=== PATIENT | female | born 1945 | race Caucasian/White ===

== ENCOUNTER 2021-11-05 18:22 | Emergency (ER) | payer MEDICARE, OTHER ==
[~2021-11-05 18:22] MED LIST: ALBUTEROL2.5 MG/3 M INH; ATROVENT-HFA12.9 GM INH; AZITHROMYCIN250 MG PO; BREO ELLIPTA 11 EACH INH; CLARITIN10 M2 PO; CLOPIDOGREL75 MG PO; COLACE 100MG C100 MG PO; ECOTRIN81 MG PO; GAVILAX17 GM PO; LEVAQUIN500 MG PO; MEDROL DOSEPAK 24 MG PO; MEDROL4 MG PO; MULTIVITAMINS1 EAC1 PO; NORCO 10-325 T1 EACH PO; OMEPRAZOLE20 MG PO; PEPCID40 MG PO; PROAIR HFA8.5 GM INH; SINGULAIR10 MG PO; SPIRIVA RESPIMAT4 GM INH; SYMBICORT 16010.2 GM INH; VENTOLIN HFA 66.7 GM INH; VITAMIN D250000 UNIT PO; ZANTAC150 MG PO; ZOFRAN4 MG PO
[2021-11-05 18:56] LABS: HEMOGLOBIN 9.9 gm/dl (12.3-15.3); RED BLOOD COUNT 3.76 M/UL (4.00-5.10); WHITE BLOOD COUNT 6.7 K/UL (4.5-11.0)
[2021-11-05 19:22] LABS: BUN/CREATININE RATIO 21 (0-10)
[2021-11-05] MEDS ORDERED: ZITHROMAX250 MG PO (20:54)
[2021-11-05] MEDS ORDERED: PREDNISONE20 MG PO (20:55)
== END 2021-11-05 21:26 | disposition home or self-care (01) ==
LOC: ER1 18:22
PROVIDERS: Emergency Medicine
DX: J44.1 Chronic obstructive pulmonary disease with (acute) exacerbation (principal)
CPT/HCPCS: 71045; 80053; 82550; 82553; 83880; 84484; 85025; 93005; 94640; 94664; 96374; 99285; J1100